=== PATIENT | male | born 1980 | race American Indian/Alaskan Native ===

== ENCOUNTER → 2016-07-12 | Outpatient (CLI) | payer BC ==
--- NOTE | 2016-07-19 16:08 | SS ---
ADMIT: 07/12/2016 RM/LOC: [facility] MR#: [id number] [address] [id number] DYAN HINOJOSA [address] [place] [address] Sleep Study SEX: M AGE: 36 : 1980 STUDY DATE: 07/12/2016 CLINICAL HISTORY: A 36-year-old male, body mass index of 61.7, 74 inches tall, 481 pounds with symptoms of snoring, daytime sleepiness, witnessed apneas, in the sleep lab for evaluation of obstructive sleep apnea. TECHNICAL DESCRIPTION: Split night polysomnogram performed on night of 07/12/2016, attended by a trained nuclear technologist. DIAGNOSTIC POLYSOMNOGRAM FINDINGS: SLEEP: Total time in bed during the diagnostic portion is 79 minutes, total sleep time 69.5 minutes, sleep efficiency 88%. BREATHING: Severe obstructive sleep apnea with apnea-hypopnea index of 145. OXYGEN SATURATION: Baseline oxygen saturation during the diagnostic study was in the mid 80s with lowest oxygen saturation 67%. CPAP/BIPAP TITRATION FINDINGS: TITRATION DESCRIPTION: The patient was titrated from 5 cm CPAP to 19 cm of CPAP demonstrated on BiPAP at . BREATHING: The patient had ongoing obstructive hypopneas in spite of titrating up to 19 cm and hence failed CPAP. On BiPAP at , the patient was seen in REM sleep in supine position with near complete resolution of obstructive events. OXYGEN SATURATION: Average oxygen saturation on the ending BiPAP pressure of was 94%. CARDIAC: Average heart rate is 85 beats per minute. Body position during the study, the patient slept predominantly in the lateral position. No significant supine sleep was seen with no significant leg movements. IMPRESSION/PLAN: ADMIT: 07/12/2016 RM/LOC: [facility] MR#: [id number] [address] [id number] DYAN HINOJOSA [address] [place] [address] Sleep Study SEX: M AGE: 36 : 1980 1. Severe obstructive sleep apnea with apnea-hypopnea index of 145. 2. CPAP/BiPAP titration reveals that the patient failed CPAP because of ongoing obstructive events in spite of titrating up to 19 cm. 3. On BiPAP at , excellent position of obstructive sleep apnea was seen. The patient was seen in REM sleep in lateral position. 4. Recommend using BiPAP with Vinay. He is on large mask. Recommend losing weight. Recommend avoiding sedative and alcohol. Recommend refrain from driving if excessively sleepy. Recommend avoiding sleeping in supine position. Clinical correlation needed. BiPAP compliance followup is recommended. Padilla Garcia MD/ ruy JOB #: [id number] CC: Ady Lopez MD, Attending Physician Heriberto Dobson ([facility]), Family Physician Ady Lopez MD
== END | disposition home or self-care (01) ==
LOC: RESC 20:14
DX: G47.33 Obstructive sleep apnea (adult) (pediatric) (principal)